=== PATIENT | female | born 1955 | race Caucasian/White ===

== ENCOUNTER → 2024-03-13 11:12 | Outpatient (REF) | payer OTHER, SELFPAY | LOC: HWRAD 11:12 | PROVIDERS: ATTENDING PHYSICIAN Internal Medicine | DX: M25.511 Pain in right shoulder (principal) | CPT/HCPCS: 73030 ==

== ENCOUNTER → 2024-04-09 09:33 | Outpatient (REF) | payer OTHER, SELFPAY | LOC: DHSLP 09:33 | PROVIDERS: ATTENDING PHYSICIAN Internal Medicine Critical Care Medicine | DX: G47.33 Obstructive sleep apnea (adult) (pediatric) (principal) | CPT/HCPCS: 95800 ==

== ENCOUNTER → 2024-05-26 06:46 | Outpatient (REF) | payer OTHER, SELFPAY | LOC: MRI 3T 06:46 | PROVIDERS: ATTENDING PHYSICIAN Chiropractor Rehabilitation; FAMILY PHYSICIAN Internal Medicine | DX: M75.121 Complete rotator cuff tear or rupture of right shoulder, not specified as traumatic (principal); M50.20 Other cervical disc displacement, unspecified cervical region | CPT/HCPCS: 72141; 73221 ==